=== PATIENT | female | born 1990 | race Two or more races ===

== ENCOUNTER 2016-06-13 18:38 | Emergency (ER) | payer MEDICAID, OTHER ==
[~2016-06-13] VITALS: Ht 172.7 cm; Wt 70.2 kg
[~2016-06-13 18:38] MED LIST: PREN29CH PO
[2016-06-13 18:51] VITALS: BP 116/71; PULSE 71; RESP 18; TEMP 98.9; O2SAT 98
--- NOTE | 2016-06-13 19:31 | PD ---
HPI Chief Complaint: Fall Time Seen by Provider: 19:19 Travel History International Travel<30 days: No Contact w/Intl Traveler<30days: No Traveled to known affect area: No History of Present Illness HPI Patient is a 26-year-old female who fell while climbing down off of a chair yesterday at a constitution party. Patient states she stubbed her left toe and has been having pain in the total of her right upper extremity and her right lower extremity since then. Patient states she's been ambulatory but still has some muscle tightness and wanted to be seen. Denies head injury denies neck injury denies loss of consciousness or chest pain. States pain is been gradually worsening. Aching in nature. PFSH Past Medical History ?: Not LMP: 05/24/16 Tubal Ligation: Yes Past Surgical History Section: Yes Social History Alcohol Use: No Tobacco Use: No Substance Use: No Allergies-Medications (Allergen,Severity, Reaction): Coded Allergies: Morphine (Verified Allergy, Severe, 06/16/16) Percocet (Verified Allergy, Severe, 06/16/16) Shellfish (Verified Allergy, Unknown, 06/16/16) Reported Meds & Prescriptions Reported Meds & Active Scripts Active Macrobid (Nitrofurantoin Monoh/Nitrofur Macro) 100 Mg Cap 100 Mg PO BID 7 Days Zofran Odt (Ondansetron Odt) 4 Mg Tab 4 Mg SL Q6HR PRN Review of Systems Except as stated in HPI: all other systems reviewed are Neg Physical Exam Narrative GENERAL: Well-nourished, well-developed patient. In no apparent distress. SKIN: Warm and dry. HEAD: Normocephalic. EYES: No scleral icterus. No injection or drainage. NECK: Supple, trachea midline. No JVD or lymphadenopathy. CARDIOVASCULAR: Regular rate and rhythm without murmurs, gallops, or rubs. RESPIRATORY: Breath sounds equal bilaterally. No accessory muscle use. GASTROINTESTINAL: Abdomen soft, non-tender, nondistended. MUSCULOSKELETAL: No cyanosis, or edema. There is some minimal ecchymosis and edema surrounding the left middle phalanx of the foot. The remainder of her extremities are atraumatic. There is no tenderness at the ankle knee hip bilaterally in the lower extremities, no tenderness at the wrists elbows shoulders bilaterally. No CT or L-spine tenderness or step-off. Extremities are other than above atraumatic. BACK: Nontender without obvious deformity. No CVA tenderness. Data Data Last Documented VS Orders Foot, Complete ([id number]) (06/13/16 ) [facility] Medical Decision Making Medical Screen Exam Complete: Yes Emergency Medical Condition: Yes Differential Diagnosis Toe fracture, toe contusion, foot contusion. Narrative Course Last 24 hours Impressions Foot X-Ray 06/13/16 0000 Signed Impressions: Service Date/Time: Monday, June 13, 2016 19:34 - CONCLUSION: Normal examination for a patient of this age. Nam Paez MD Patient roomed in the emergency department. She appears well in no obvious distress. There is indications for an x-ray for foot on the left however there is no indications for ankle knee images of bilateral lower extremities. No traumatic injury noted to either upper extremity. No indication for imaging's of other extremities. Discussed the patient's medic management and return to ED criteria as well as follow-up the primary care physician. Discussed fall prevention at home. She is stable for discharge at this time. She was offered pain medicine in the emergency department and declined. Diagnosis Primary Impression: Myalgia Additional Impression: Contusion of left lesser toe(s) without damage to nail, initial encounter Med/Other Pt SpecificInfo: Prescription(s) given Disposition: 01 DISCHARGE HOME Condition: Stable Jaden Flores MD Jun 13, 2016 19:31
--- NOTE | 2016-06-13 19:47 | RADHPO ---
EXAM DATE/TIME: 06/13/2016 19:34 [facility] COMPARISON: No previous studies available for comparison. INDICATIONS : Left foot pain post fall. MEDICAL HISTORY : None. SURGICAL HISTORY : None. ENCOUNTER: Initial ACUITY: 3 days PAIN SCORE: 8/10 LOCATION: Left foot FINDINGS: Three view examination of the left foot demonstrates no soft tissue swelling, dislocation, or fractur e. The tarsal bones appear intact. The interphalangeal and metatarsophalangeal joints are intact. The calcaneus is intact. Bony mineralization is normal. CONCLUSION: Normal examination for a patient of this age. Nam Paez MD on June 13, 2016 at 19:45 Board Certified Radiologist. This report was verified electronically.
[2016-06-13] MEDS ORDERED: CYCL5TAB PO (19:52)
== END 2016-06-13 20:14 | disposition home or self-care (01) ==
LOC: PHEFT 18:38
DX: S90.122A Contusion of left lesser toe(s) without damage to nail, initial encounter (principal); W22.8XXA Striking against or struck by other objects, initial encounter; Y93.39 Activity, other involving climbing, rappelling and jumping off; Y92.9 Unspecified place or not applicable; Y99.9 Unspecified external cause status
CPT/HCPCS: 73630; 99284

== ENCOUNTER 2016-06-16 18:50 | Emergency (ER) | payer MEDICAID ==
[~2016-06-16] VITALS: Ht 165.1 cm; Wt 70.0 kg
[~2016-06-16 18:50] MED LIST changes: +CYCL5TAB PO; -PREN29CH PO
[2016-06-16 19:06] VITALS: BP 96/62; PULSE 107; RESP 16; TEMP 99.2; O2SAT 99
[2016-06-16 19:10] VITALS: BP 90/63; PULSE 95; RESP 18; O2SAT 96
[2016-06-16] MEDS ORDERED: SODIUM CHLOR 0.9% 1000 ML INJ 1,000 ML IV ONE ×2 (19:57→20:45)
[2016-06-16] MEDS ORDERED: SODIUM CHLORIDE 0.9% FLUSH 10 ML FLUSH IVF PRN (20:00)
[2016-06-16] MEDS ORDERED: ONDANSETRON HCL 4 MG/2 ML VIAL IVP ONE (20:00)
[2016-06-16] MEDS ORDERED: PANTOPRAZOLE SODIUM 40 MG VIAL IVP ONE (20:00)
--- NOTE | 2016-06-16 20:05 | PD ---
HPI Chief Complaint: GI Complaint Time Seen by Provider: 19:57 Travel History International Travel<30 days: No Contact w/Intl Traveler<30days: No Traveled to known affect area: No History of Present Illness HPI 26-year-old female presents to the emergency department for complaint of nausea vomiting diarrhea abdominal cramping since 10 AM. Patient states that she has been exposed to her to step daughter's who have similar symptoms since last evening. Patient states she has vomited twice and had diarrhea 7 times. No dysuria frequency or urgency. Patient is status post tubal ligation and denies . Patient's had subjective fever and chills. Patient denies any well water ingestion dietary indiscretion or foreign travel. No other family members are ill. Patient states cramping is continuous. No previous report of gastritis peptic ulcer disease pancreatitis or gallbladder disease. Patient rates pain 8/10 in intensity. PFSH Past Medical History Narrative Medical Ab0 tubal ligation; tobacco use; nursing notes reviewed Medical History: Denies Significant Hx Diminished Hearing: No Tetanus Vaccination: < 5 Years Influenza Vaccination: No ?: Not LMP: 2013 - TUBAL LIGATION Tubal Ligation: Yes (2012) Past Surgical History Surgical History: No Previous Surgery Section: Yes Social History Alcohol Use: No Tobacco Use: Yes (PT STATES SHE SMOKE 4 CIGARETTES/DAY) Substance Use: No Allergies-Medications (Allergen,Severity, Reaction): Coded Allergies: Morphine (Verified Allergy, Severe, 06/13/16) Percocet (Verified Allergy, Severe, 06/13/16) Shellfish (Verified Allergy, Unknown, 06/13/16) Reported Meds & Prescriptions Reported Meds & Active Scripts Active Narrative Medication Pepto-Bismol Review of Systems Except as stated in HPI: all other systems reviewed are Neg General / Constitutional: Positive: Fever (subjective), Chills HENT: No: Congestion (subjective) Cardiovascular: No: Chest Pain or Discomfort Respiratory: No: Shortness of Breath Gastrointestinal: Positive: Nausea, Vomiting, Diarrhea, Abdominal Pain Genitourinary: No: Dysuria, Decreased Urinary Output, Vaginal Bleeding Musculoskeletal: No: Myalgias, Arthralgias Skin: No Rash Neurologic: No: Weakness Psychiatric: No: Anxiety Hematologic/Lymphatic: No: Lymph Node Enlargement Physical Exam Narrative GENERAL: Well-developed well-nourished female in no acute distress no respiratory distress SKIN: Warm and dry. HEAD: Normocephalic. EYES: No scleral icterus. No injection or drainage. NECK: Supple, trachea midline. No JVD or lymphadenopathy. CARDIOVASCULAR: Regular rate and rhythm without murmurs, gallops, or rubs. RESPIRATORY: Breath sounds equal bilaterally. No accessory muscle use. GASTROINTESTINAL: Abdomen soft, diffusely tender with focal area of tenderness epigastric and periumbilical with voluntary guarding no rebound, nondistended. MUSCULOSKELETAL: No cyanosis, or edema. BACK: Nontender without obvious deformity. No CVA tenderness. Data Data Last Documented VS Vital Signs Date Time Temp Pulse Resp B/P Pulse Ox O2 Delivery O2 Flow Rate FiO2 06/16/16 20:16 99 Room Air 06/16/16 20:15 100.1 82 18 93/67 Orders Complete Blood Count With Diff (06/16/16 19:57) Comprehensive Metabolic Panel (06/16/16 19:57) Urinalysis - C+S If Indicated (06/16/16 19:57) Lipase (06/16/16 19:57) Abdomen, Flat & Upright (06/16/16 ) Iv Access Insert/Monitor (06/16/16 19:57) Ecg Monitoring (06/16/16 19:57) Oximetry (06/16/16 19:57) Ondansetron Inj (Zofran Inj) (06/16/16 20:00) Pantoprazole Inj (Protonix Inj) (06/16/16 20:00) Sodium Chlor 0.9% 1000 Ml Inj (Ns 1000 M (06/16/16 19:57) Sodium Chloride 0.9% Flush (Ns Flush) (06/16/16 20:00) Enteric Path (Stool) (06/16/16 19:57) Ed Urine Pregnancytest Poc (06/16/16 19:57) Urine Culture (06/16/16 20:10) Sodium Chlor 0.9% 1000 Ml Inj (Ns 1000 M (06/16/16 20:45) Ceftriaxone Inj (Rocephin Inj) (06/16/16 20:45) Acetaminophen (Tylenol) (06/16/16 20:45) Ondansetron Inj (Zofran Inj) (06/16/16 21:15) Ketorolac Inj (Toradol Inj) (06/16/16 21:15) Labs Laboratory Tests Test 06/16/16 20:10 White Blood Count 6.7 TH/MM3 Red Blood Count 4.53 MIL/MM3 Hemoglobin 13.0 GM/DL Hematocrit 38.0 % Mean Corpuscular Volume 84.0 FL Mean Corpuscular Hemoglobin 28.6 PG Mean Corpuscular Hemoglobin 34.1 % Concent Red Cell Distribution Width 12.2 % Platelet Count 171 TH/MM3 Mean Platelet Volume 8.3 FL Neutrophils (%) (Auto) 92.3 % Lymphocytes (%) (Auto) 3.2 % Monocytes (%) (Auto) 2.4 % Eosinophils (%) (Auto) 1.9 % Basophils (%) (Auto) 0.2 % Neutrophils # (Auto) 6.2 TH/MM3 Lymphocytes # (Auto) 0.2 TH/MM3 Monocytes # (Auto) 0.2 TH/MM3 Eosinophils # (Auto) 0.1 TH/MM3 Basophils # (Auto) 0.0 TH/MM3 CBC Comment DIFF FINAL Differential Comment Urine Color YELLOW Urine Turbidity CLOUDY Urine pH 5.5 Urine Specific [place] 1.030 Urine Protein NEG mg/dL Urine Glucose (UA) NEG mg/dL Urine Ketones 15 mg/dL Urine Occult Blood TRACE Urine Nitrite NEG Urine Bilirubin NEG Urine Leukocyte Esterase NEG Urine RBC 0-3 /hpf Urine WBC 3-5 /hpf Urine Squamous Epithelial > 8 /hpf Cells Urine Bacteria MANY /hpf Microscopic Urinalysis Comment CULTURE INDICATED Sodium Level 141 MEQ/L Potassium Level 3.8 MEQ/L Chloride Level 108 MEQ/L Carbon Dioxide Level 25.0 MEQ/L Anion Gap 8 MEQ/L Blood Urea Nitrogen 15 MG/DL Creatinine 0.66 MG/DL Estimat Glomerular Filtration 107 ML/MIN Rate Random Glucose 92 MG/DL Calcium Level 8.5 MG/DL Total Bilirubin 0.6 MG/DL Aspartate Amino Transf 12 U/L (AST/SGOT) Alanine Aminotransferase 17 U/L (ALT/SGPT) Alkaline Phosphatase 62 U/L Total Protein 6.9 GM/DL Albumin 3.4 GM/DL Lipase 92 U/L [facility] Medical Decision Making Medical Screen Exam Complete: Yes Emergency Medical Condition: Yes Medical Record Reviewed: Yes Interpretation(s) Urine point of care hCG: Negative Urinalysis many bacteria culture indicated lft's/lipase: values wnl Vital Signs Date Time Temp Pulse Resp B/P Pulse Ox O2 Delivery O2 Flow Rate FiO2 06/16/16 20:16 99 Room Air 06/16/16 20:15 100.1 82 18 93/67 99 Room Air 06/16/16 19:10 95 18 90/63 96 Room Air 06/16/16 19:10 18 06/16/16 19:06 99.2 107 16 96/62 99 Last Impressions Abdomen X-Ray 06/16/16 0000 Signed Impressions: Service Date/Time: May 20:13 - CONCLUSION: 1. Nonspecific bowel gas pattern without evidence for obstruction or free air. Warren Chavez MD CBC & BMP Diagram 06/16/16 20:10 Vital Signs Date Time Temp Pulse Resp B/P Pulse Ox O2 Delivery O2 Flow Rate FiO2 06/16/16 20:16 99 Room Air 06/16/16 20:15 100.1 82 18 93/67 99 Room Air 06/16/16 19:10 95 18 90/63 96 Room Air 06/16/16 19:10 18 06/16/16 19:06 99.2 107 16 96/62 99 Differential Diagnosis Gastroenteritis, food borne illness, viral syndrome, gastritis, peptic ulcer disease, colitis, enteritis, appendicitis, ectopic , UTI, dehydration Narrative Course Patient placed on court recording monitor IV access obtained specimens collected and sent for resulting; patient administered bolus of 1 L normal saline along with Zofran 4 mg and Protonix 40 mg IV: Flat and upright abdomen imaging ordered Abdominal x-ray flat and upright reveals no obvious air-fluid levels subdiaphragmatic free air or dilatation; lab values found to be in normal range except for 92% neutrophils by automated differential on CBC with normal white cell count and many bacteria on urinalysis with culture indicated. Patient continues complaining of nausea remains mildly hypotensive after nearly completing 1 L bolus of normal saline; additional liter of normal saline administered along with presumptive antibiotic coverage with Rocephin 1 g IV piggyback and on repeat vital signs temperature is mildly elevated at 100.1F acetaminophen administered. At 10 PM patient is clinically improved taking oral hydration well no further nausea or vomiting patient is stable for outpatient management anti-emetic and antibiotic. Diagnosis Primary Impression: Gastroenteritis Additional Impression: UTI (urinary tract infection) Qualified Code: N39.0 - Urinary tract infection without hematuria, site unspecified Referrals: Primary Care Physician call for appointment Patient Instructions: General Instructions Med/Other Pt SpecificInfo: Prescription(s) given Scripts Nitrofurantoin Monohydrate Macrocrystals (Macrobid)100 Mg [id number] Mg PO BID 7 Days Ref 0 Prov:Adamaris Ramírez MD 06/16/16 Ondansetron Odt (Zofran Odt)4 Mg Tab4 Mg SL Q6HR PRN (Nausea/Vomiting) #10 TAB Ref 0 Prov:Adamaris Ramírez MD 06/16/16 Disposition: 01 DISCHARGE HOME Condition: Stable Adamaris Ramírez MD Jun 16, 2016 20:05
[2016-06-16 20:15] VITALS: BP 93/67; PULSE 82; RESP 18; TEMP 100.1; O2SAT 99
[2016-06-16 20:16] VITALS: O2SAT 99
[2016-06-16 20:16] LABS: AUTOMATED NEUTROPHIL # 6.2 TH/MM3 (1.8-7.7); BASOPHIL % 0.2 % (0.0-2.0); BLOOD, URINE TRACE (NEG); EOSINOPHIL # 0.1 TH/MM3 (0-0.4); EOSINOPHIL % 1.9 % (0.0-4.0); GLUCOSE,URINE NEG (NEG); HEMO FLAGS DIFF FINAL; KETONE, URINE 15 mg/dL (NEG); LYMPH % 3.2 % (9.0-44.0); LYMPHOCYTE # 0.2 TH/MM3 (1.0-4.8); MEAN CORPUSCULAR HEMOGLOBIN 28.6 PG (27.0-34.0); MEAN CORPUSCULAR HGB CONC 34.1 % (32.0-36.0); MONO % 2.4 % (0.0-8.0); NEUT % 92.3 % (16.0-70.0); NITRITE,URINE NEG (NEG); PH, URINE 5.5 (5.0-8.5); PLATELET COUNT 171 TH/MM3 (150-450); RED BLOOD COUNT 4.53 MIL/MM3 (4.00-5.30); RED CELL DISTRIBUTION WIDTH 12.2 % (11.6-17.2); WHITE BLOOD COUNT 6.7 TH/MM3 (4.0-11.0)
[2016-06-16 20:23] LABS: CHLORIDE 108 MEQ/L (98-107); POTASSIUM 3.8 MEQ/L (3.5-5.1); SODIUM (NA) 141 MEQ/L (136-145)
[2016-06-16 20:26] LABS: RBC, URINE 0-3 /hpf (0-3); SQUAMOUS EPITHELIAL CELL URINE > 8 /hpf (0-5); URINE COLOR YELLOW (YELLW/STRAW)
[2016-06-16 20:27] LABS: ANION GAP 8 MEQ/L (5-15); BACTERIA, URINE MANY /hpf; BLOOD UREA NITROGEN 15 MG/DL (7-18); COMMENT (UR) CULTURE INDICATED; CULTURE IF INDICATED CULTURE INDICATED
[2016-06-16 20:30] LABS: ALT (GPT) 17 U/L (10-53); AST (GOT) 12 U/L (15-37); GLOMERULAR FILTRATION RATE 107 ML/MIN (>89)
[2016-06-16 20:31] LABS: TOTAL BILIRUBIN ADULT 0.6 MG/DL (0.2-1.0)
[2016-06-16 20:32] LABS: ALKALINE PHOSPHATASE 62 U/L (45-117)
[2016-06-16] MEDS ORDERED: cefTRIAXone INJ 1,000 MG in SODIUM CHLORIDE 0.9% INJ 100 ML IV ONE (20:45)
[2016-06-16] MEDS ORDERED: ACETAMINOPHEN 325 MG TAB PO ONE (20:45)
--- NOTE | 2016-06-16 21:01 | RADHPO ---
EXAM DATE/TIME: 06/16/2016 20:13 [facility] COMPARISON: No previous studies available for comparison. INDICATIONS : Abdominal pain, nausea, vomiting, and diarrhea. MEDICAL HISTORY : None. SURGICAL HISTORY : Tubal ligation. section. ENCOUNTER: Initial ACUITY: 1 day PAIN SCORE: 10/10 LOCATION: Abdomen. FINDINGS: Supine and upright views of the abdomen were performed. The abdominal bowel gas pattern is normal. No air fluid levels are seen. No abnormal masses, calcifications, or organomegaly is seen. The visu alized lower lungs are clear. No evidence of free intraperitoneal gas. The osseous structures are u nremarkable. CONCLUSION: 1. Nonspecific bowel gas pattern without evidence for obstruction or free air. Warren Chavez MD on June 16, 2016 at 20:57 Board Certified Radiologist. This report was verified electronically.
[2016-06-16] MEDS ORDERED: ONDANSETRON HCL 4 MG/2 ML VIAL IV PUSH ONE (21:15)
[2016-06-16] MEDS ORDERED: KETOROLAC TROMETHAMINE 30 MG/ML (IVP) VIAL IV PUSH ONE (21:15)
[2016-06-16] MEDS ORDERED: MACR100C2 PO (22:00)
[2016-06-16] MEDS ORDERED: ZOFR4TAB3 SL (22:00)
[2016-06-16 22:16] VITALS: BP 91/50; PULSE 85; RESP 16; TEMP 99.1; O2SAT 99
[2016-06-16 22:25] VITALS: BP 96/64; PULSE 78; RESP 18; TEMP 99; O2SAT 98
== END 2016-06-16 22:30 | disposition home or self-care (01) ==
LOC: PHED 18:50
DX: K52.9 Noninfective gastroenteritis and colitis, unspecified (principal); N39.0 Urinary tract infection, site not specified; Z72.0 Tobacco use; B96.89 Other specified bacterial agents as the cause of diseases classified elsewhere
CPT/HCPCS: 74020; 80053; 81001; 83690; 84703; 85025; 87086; 96361; 96365; 96375; 96376; 99284; C9113; J0696; J1885; J2405; J7030

== ENCOUNTER 2017-03-22 21:53 | Emergency (ER) | payer MEDICAID ==
[~2017-03-22 21:53] MED LIST changes: -CYCL5TAB PO; +MACR100C2 PO; +ZOFR4TAB3 SL
[2017-03-22] MEDS ORDERED: LOPE2CAP PO (23:39)
[2017-03-22] MEDS ORDERED: DICY10 PO (23:39)
[2017-03-22] MEDS ORDERED: ZOFR4TAB3 SL (23:39)
== END 2017-03-22 22:20 | disposition left against medical advice (07) ==
LOC: PHED 21:53
DX: R11.2 Nausea with vomiting, unspecified (principal); Z53.21 Procedure and treatment not carried out due to patient leaving prior to being seen by health care provider
CPT/HCPCS: 99281

== ENCOUNTER 2017-03-22 22:39 | Emergency (ER) | payer MEDICAID ==
[~2017-03-22] VITALS: Ht 165.1 cm; Wt 61.0 kg
[2017-03-22 22:40] VITALS: BP 117/64; PULSE 95; RESP 16; TEMP 99.5; O2SAT 96
[2017-03-22] MEDS ORDERED: ONDANSETRON HCL 4 MG/2 ML VIAL IV PUSH ONE (23:30)
[2017-03-22] MEDS ORDERED: DICYCLOMINE HCL 10 MG CAP PO ONE (23:30)
[2017-03-22] MEDS ORDERED: LOPERAMIDE HCL SOLN 2 MG/10 ML UDC PO ONE (23:30)
[2017-03-22] MEDS ORDERED: SODIUM CHLOR 0.9% 1000 ML INJ 1,000 ML IV ONE (23:30)
[2017-03-22] MEDS ORDERED: LOPE2CAP PO (23:39)
[2017-03-22] MEDS ORDERED: DICY10 PO (23:39)
[2017-03-22] MEDS ORDERED: ZOFR4TAB3 SL (23:39)
--- NOTE | 2017-03-22 23:39 | PD ---
HPI Chief Complaint: GI Complaint Time Seen by Provider: 23:12 Travel History International Travel<30 days: No Contact w/Intl Traveler<30days: No Traveled to known affect area: No History of Present Illness HPI To 27 year-old woman presents emergent department nausea vomiting diarrhea during this afternoon. She some abdominal pain as well. Couple episodes watery diarrhea. No blood. Sister sick with similar symptoms. She otherwise has been feeling generally well. No definite fevers. No URI symptoms. No other complaints. History Past Medical History Medical History: Denies Significant Hx LMP: 03/10/17 : 3 Para: 2 Social History Alcohol Use: No Tobacco Use: Yes Allergies-Medications (Allergen,Severity, Reaction): Coded Allergies: acetaminophen (Unverified Allergy, Severe, 11/09/16) morphine (Unverified Allergy, Severe, 11/09/16) oxycodone (Unverified Allergy, Severe, 11/09/16) shellfish derived (Unverified Allergy, Unknown, 11/09/16) Reported Meds & Prescriptions Reported Meds & Active Scripts Active No Active Prescriptions or Reported Medications Review of Systems Except as stated in HPI: all other systems reviewed are Neg Physical Exam Narrative 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 SKIN: Focused skin assessment warm/dry. CARDIOVASCULAR: Regular rate and rhythm. No murmur appreciated. RESPIRATORY: No accessory muscle use. Clear to auscultation. Breath sounds equal bilaterally. GASTROINTESTINAL: Abdomen soft, non-tender, nondistended. Hepatic and splenic margins not palpable. MUSCULOSKELETAL: No obvious deformities. No clubbing. No cyanosis. No edema. NEUROLOGICAL: Awake and alert. No obvious cranial nerve deficits. Motor grossly within normal limits. Normal speech. PSYCHIATRIC: Appropriate mood and affect; insight and judgment normal. Data Data Last Documented VS Vital Signs Date Time Temp Pulse Resp B/P (MAP) Pulse Ox O2 Delivery O2 Flow Rate FiO2 03/22/17 22:40 99.5 95 16 117/64 (81) 96 Room Air Orders Orders Iv Access Insert/Monitor (03/22/17 23:17) Ondansetron Inj (Zofran Inj) (03/22/17 23:30) Loperamide Liq (Imodium Liq) (03/22/17 23:30) Dicyclomine (Bentyl) (03/22/17 23:30) Sodium Chlor 0.9% 1000 Ml Inj (Ns 1000 M (03/22/17 23:30) [facility] Medical Decision Making Medical Screen Exam Complete: Yes Emergency Medical Condition: Yes Differential Diagnosis Gastroenteritis, gastritis, food borne illness, other Narrative Course Medical decision making INITIAL: 19 year-old woman with nausea vomiting diarrhea suggestive of infectious gastroenteritis. Looks well. We'll give symptomatic treatment. Diagnosis Primary Impression: Gastroenteritis Additional Instructions: Use Zofran as a for nausea or vomiting. Use Bentyl as needed for abdominal cramping. Take loperamide as needed for diarrhea. Drink plenty fluids stay well-hydrated. Return to the emergency department for any worsening severe abdominal pain, bloody diarrhea, or high fevers. Med/Other Pt SpecificInfo: Prescription(s) given Scripts Dicyclomine (Bentyl) 10 Mg Cap 10 MG PO TID Y for Bowel Management, #12 CAP 0 Refills Prov: Evan Membreno MD 03/22/17 Loperamide (Loperamide) 2 Mg Cap 2 MG PO DIRECTED Y for DIARRHEA, #6 CAP 0 Refills One capsule after each loose stool. Not to exceed 8 capsules per day. Prov: Evan Membreno MD 03/22/17 Ondansetron Odt (Zofran Odt) 4 Mg Tab 4 MG SL Q8HR Y for Nausea/Vomiting, #12 TAB 0 Refills Prov: Evan Membreno MD 03/22/17 Disposition: 01 DISCHARGE HOME Condition: Stable Evan Membreno MD Mar 22, 2017 23:39
== END 2017-03-23 01:18 | disposition home or self-care (01) ==
LOC: NEPC 22:39
DX: K52.9 Noninfective gastroenteritis and colitis, unspecified (principal); Z72.0 Tobacco use
CPT/HCPCS: 96360; 99284; J2405; J7030

== ENCOUNTER 2017-07-31 08:56 | Emergency (ER) | payer MEDICAID | END 2017-07-31 09:47 | disposition home or self-care (01) | LOC: PHEFT 08:56 | DX: J45.909 Unspecified asthma, uncomplicated (principal) | CPT/HCPCS: 99283 ==